=== PATIENT | female | born 1950 | race Caucasian/White ===

== ENCOUNTER 2023-07-12 13:56 | Outpatient (CLI) | payer MEDICARE | END 2023-07-12 13:57 | disposition home or self-care (01) | LOC: BICMAMMO 13:56 | PROVIDERS: ATTEND Family Medicine | DX: Z13.820 Encounter for screening for osteoporosis (principal); N95.9 Unspecified menopausal and perimenopausal disorder; M85.851 Other specified disorders of bone density and structure, right thigh; M85.852 Other specified disorders of bone density and structure, left thigh | CPT/HCPCS: 77080 ==